=== PATIENT | male | born 1955 | race Caucasian/White ===

== ENCOUNTER 2021-11-30 07:13 | Day surgery (SDC) | payer OTHER, SELFPAY ==
[2021-11-30] VITALS (7 sets, daily range): BP systolic 97–144; BP diastolic 53–83; PULSE 48–84; RESP 16–18; TEMP 36.3–36.4; O2SAT 97–100; BMI 31.0
[2021-11-30] MEDS: Lactated Ringers 1,000 ML 15 ML IV (07:40)
--- NOTE | 2021-11-30 07:41 | HP.PCM_ITS ---
HPI - General HPI Narrative ISMA HANCOCK, is a 65 M who presents for screening colonoscopy today. Previous one was 10 years ago. No family history. No current symptoms. He presents via open access today. [facility] Medical History (Updated 11/28/21 @ 09:36 by Lilo Hoffmann) Cancer Former smoker History of skin cancer History of stress test Kidney stone Wears contact lenses Wears glasses Wears hearing aid Home Medications doxycycline monohydrate 50 mg PO DAILY 11/28/21 [History Last Taken Unknown] omega-3 fatty acids [Fish Oil] 1,000 mg PO DAILY 11/28/21 [History Last Taken 11/12/21] Allergy/AdvReac Type Severity Reaction Status Date / Time No Known Allergies Allergy Verified 11/28/21 09:29 Surgical History (Updated 11/28/21 @ 09:36 by Lilo Hoffmann) Hx of appendectomy Social History Smoking Status: Former smoker ROS Constitutional Constitutional: Reports systems reviewed and no addt'l complaints, except as documented Cardiovascular Cardiovascular: Denies chest pain Respiratory/Chest Respiratory/Chest: Denies shortness of breath at rest Gastrointestinal Gastrointestinal: Denies abdominal pain, change in bowel habits, hematochezia or melena Physical Exam Const alert, oriented x3 and no apparent distress General Appearance: cooperative and comfortable Eyes General Eye: normal appearance of both eyes Neck General: normal visual inspection Chest inspection of chest normal Resp Effort and Inspection: able to speak in complete sentences and symmetric chest movement Auscultation: clear to auscultation bilaterally Cardio regular rate and regular rhythm GI soft to palpation, non-tender and non-distended Extremity no calf tenderness Neuro oriented x3 Psych thought process normal Assessment & Plan Assessment/Plan (1) Encounter for screening for malignant neoplasm of colon: PLAN: Plan to proceed with a colonoscopy with possible biopsy or polypectomy as indicated. He is aware of the technique, benefit, risk, alternatives. He has had an opportunity to ask and have questions answered. We will proceed as noted. Silas Okeefe M.D., F.A.C.S.
--- NOTE | 2021-11-30 09:29 | OP.COLON_ITS ---
Patient Name: Reyes Santos Procedure Date: 11/30/2021 8:59 AM Date of : 1955 Age: 65 Procedure: Colonoscopy Indications: Screening for colorectal malignant neoplasm Providers: Silas Okefee MD Medicines: See the Anesthesia note for documentation of the administered medications Patient Profile: Last Colonoscopy: 10 years ago. Complications: No immediate complications. Procedure: Pre-Anesthesia Assessment: - Prior to the procedure, a History and Physical was performed, and patient medications and allergies were reviewed. The patient's tolerance of previous anesthesia was also reviewed. The risks and benefits of the procedure and the sedation options and risks were discussed with the patient. All questions were answered, and informed consent was obtained. Prior Anticoagulants: The patient has taken no previous anticoagulant or antiplatelet agents. ASA Grade Assessment: II - A patient with mild systemic disease. After reviewing the risks and benefits, the patient was deemed in satisfactory condition to undergo the procedure. After I obtained informed consent, the scope was passed under direct vision. Throughout the procedure, the patient's blood pressure, pulse, and oxygen saturations were monitored continuously. The colonoscope was introduced through the anus and advanced to the cecum, identified by appendiceal orifice and ileocecal valve. The colonoscopy was performed without difficulty. The patient tolerated the procedure well. The quality of the bowel preparation was adequate to identify polyps. The ileocecal valve and the appendiceal orifice were photographed. Scope In: 9:08:20 AM Scope Withdrawal Time 0 hours 9 minutes 35 seconds Scope Out: 9:24:11 AM Total Procedure Duration Time 0 hours 15 minutes 51 seconds Findings: The digital rectal exam findings include non-thrombosed external hemorrhoids, non-thrombosed internal hemorrhoids, internal hemorrhoids that prolapse with straining, but spontaneously regress to the resting position (Grade II) and enlarged prostate. The colon (entire examined portion) was mildly tortuous. Advancing the scope required using manual pressure. The exam was otherwise without abnormality. Impression: - Non-thrombosed external hemorrhoids, non-thrombosed internal hemorrhoids, internal hemorrhoids that prolapse with straining, but spontaneously regress to the resting position (Grade II) and enlarged prostate found on digital rectal exam. - Tortuous colon. - The examination was otherwise normal. - No specimens collected. Recommendation: - Discharge patient to home. - Resume previous diet. - Continue present medications. - Repeat colonoscopy in 10 years for screening purposes. Procedure Code(s): --- Professional --- 76542, Colonoscopy, flexible; diagnostic, including collection of specimen(s) by brushing or washing, when performed (separate procedure) Diagnosis Code(s): --- Professional --- Z12.11, Encounter for screening for malignant neoplasm of colon K64.1, Second degree hemorrhoids K64.4, Residual hemorrhoidal skin tags N40.0, Benign prostatic hyperplasia without lower urinary tract symptoms Q43.8, Other specified congenital malformations of intestine CPT copyright 2017 [employer]. All rights reserved. The codes documented in this report are preliminary and upon early breastfeeding care specialist review may be revised to meet current compliance requirements. Silas Okeefe MD 11/30/2021 9:28:34 AM This report has been signed electronically. Number of Addenda: 0 Note Initiated On: 11/30/2021 8:59 AM
--- NOTE | 2021-11-30 09:30 | OP.CCLET_ITS ---
11/30/2021 Justo Gomez [address] [place] [address] Re : Colonoscopy procedure for Reyes Danielle Dear Dr. Gomez This procedure was performed on Tuesday, November 30, 2021. My impressions and recommendations are as follows: Impressions : - Non-thrombosed external hemorrhoids, non-thrombosed internal hemorrhoids, internal hemorrhoids that prolapse with straining, but spontaneously regress to the resting position (Grade II) and enlarged prostate found on digital rectal exam. - Tortuous colon. - The examination was otherwise normal. - No specimens collected. Recommendations : - Discharge patient to home. - Resume previous diet. - Continue present medications. - Repeat colonoscopy in 10 years for screening purposes. My findings are described in the full procedure note, which is enclosed. If I can be of further assistance, please feel free to contact me at Doctor phone number(s): Work: . Sincerely, Silas Okeefe MD 11/30/2021 9:28:34 AM This report has been signed electronically.
== END 2021-11-30 10:10 | disposition home or self-care (01) ==
LOC: EN 07:20 → AC 07:23
PROVIDERS: PCP Family Medicine; Referring Provider Family Medicine; Visit Provider Surgery
PROC: 0DJD8ZZ Inspection of Lower Intestinal Tract, Via Natural or Artificial Opening Endoscopic (ICD-10-PCS; CPT 45378; principal; 2021-11-30 08:40)
DX: Z12.11 Encounter for screening for malignant neoplasm of colon (principal); N40.0 Benign prostatic hyperplasia without lower urinary tract symptoms; K64.4 Residual hemorrhoidal skin tags; K64.1 Second degree hemorrhoids; Q43.8 Other specified congenital malformations of intestine; Z87.442 Personal history of urinary calculi; Z87.891 Personal history of nicotine dependence
CPT/HCPCS: 45378; J7120; J2405